=== PATIENT | female | born 1945 | race Caucasian/White ===

== ENCOUNTER 2016-05-29 06:06 | Day surgery (SDC) | payer MEDICARE, OTHER ==
[2016-05-22 12:42] LABS: HEMATOCRIT 36.6 % (36.0-48.0); HEMOGLOBIN 12.1 g/dL (12.0-16.0)
[2016-05-22 12:57] LABS: BUN (BLOOD UREA NITROGEN) 8 MG/DL (6-23); CALCIUM, SERUM 8.9 MG/DL (8.5-10.4); CHLORIDE, SERUM 99 MMOL/L (96-112); CO2 (CARBON DIOXIDE) 26 MMOL/L (24-34); CREATININE 1.24 MG/DL (0.55-1.02); GFR AFRICAN AMERICAN 51 ML/MIN (>=60); GFR NON AFRICAN AMERICAN 44 ML/MIN (>=60); GLUCOSE, SERUM 240 MG/DL (60-99); POTASSIUM, SERUM 4.4 MMOL/L (3.5-5.3); SODIUM, SERUM 136 MMOL/L (135-148)
--- NOTE | ~2016-05-29 | OP ---
Record Of Operation [facility] [address] [place]. [address] NAME: CATRINA COREA : 47 STATUS : [facility]#: [id number] AGE: 70 ADM/REG DATE : 05/29/16 MR#: [id number] REPORT SERV DATE: 05/30/16 DICTATED BY: MICHELLE RANDHAWA DATE: 05/30/16 REPORT STATUS : Draft TRANSCRIBED BY: MODBozena DATE: 05/30/16 DATE OF PROCEDURE: 05/29/2016 STATISTICAL GENETICIST: None. PRE-PROCEDURE DIAGNOSIS: Rest pain in the right lower extremity. 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 PROCEDURE PERFORMED: 1. Ultrasound-guided access to the left common femoral artery. 2. Aortogram. 3. Right lower extremity arteriogram. 4. Atherectomy of the right SFA using a TurboHawk device. 5. Angioplasty of the SFA using a 5-mm balloon. ANESTHESIA: MAC and local. SPECIMENS: Plaque. BLOOD LOSS: Minimal. COMPLICATIONS: None. INDICATIONS: Catrina Corea is a 70-year-old. She suffers from leg pain. She was investigated with ultrasound and found to have decreased LARRY. She was offered intervention. Risks, benefits, and alternatives were discussed. She understood and wished to proceed. OPERATIVE COURSE: The patient was brought to the operating room and placed in the supine position on the operating room table. The patient had MAC anesthetic without complications. Bilateral groins were prepped and draped in sterile fashion. A time-out was performed. Identified the correct patient, procedure, and site. We began by using ultrasound to identify the left common femoral artery. It was patent and free of significant disease. We anesthetized the skin and accessed the artery under ultrasound guidance. Once we had access, we passed a wire into the abdominal aorta and a picture was placed in the chart for review. The needle was then removed. We placed a 5-Comoran sheath over the wire. We passed the UF catheter and performed aortography demonstrating patency of the aortoiliac segment without flow-limiting stenosis in the aorta, common, internal, or external iliac arteries. We then passed a wire and catheter down to the right common femoral artery, performed a right lower extremity arteriogram demonstrating patency of the common femoral, profunda femoris artery. The SFA was diffusely diseased. Had a stenosis proximally and then in the mid segment had an eccentric calcified lesion that was about 90% stenosed and then distal stenosis as well. We got wire access across this lesion. We gave IV heparin and allowed adequate time for circulation. We then exchanged for a 6-Comoran sheath, which was brought up and over the aortic bifurcation of the right common femoral artery. We then brought up a Record Of Operation [address] [place]. [address] NAME: CATRINA COREA : 47 STATUS : [facility] PAT#: [id number] AGE: 70 ADM/REG DATE : 05/29/16 MR#: [id number] REPORT SERV DATE: 05/30/16 DICTATED BY: MICHELLE RANDHAWA DATE: 05/30/16 REPORT STATUS : Draft TRANSCRIBED BY: ASTRID DATE: 05/30/16 TurboHawk device and performed atherectomy of the eccentrically calcified lesion for a total of 6 passes. Repeat angiogram demonstrated an improved flow through the area. We then brought up a 5-mm balloon and performed angioplasty of the right SFA. A repeat arteriogram demonstrated brisk flow through the SFA into the distal runoff which was intact. She had three-vessel runoff into the foot. No residual stenosis was identified. Wires and catheters were withdrawn. The sheath was wired out and brought over to the left side of the patient. Left common femoral arteriogram demonstrated good location of the sheath and good size of the artery. StarClose was placed with good hemostasis. No complications. The patient tolerated the procedure well. She was awakened and transferred to recovery in stable condition. JAGRUTI/ASTRID Michelle Randhawa MD / [id number] CC: MD MADHAV Mar SARA E
[~2016-05-29 06:06] MED LIST: AMIT75 PO; COZ25 PO; CRESTOR5 MG PO; FERROUS SULF325 M1 PO; GLUCOPHAGE1000 MG PO; IMDUR30 PO; JANUVIA100 MG PO; LISINOPRIL40 MG PO; NAP500 PO; NEUR300 PO; NITROSTAT0.4 MG SL; RIOMET PO; TOPXL25 PO; VENTOLIN HFA INH; VITAMIN D PO; WELLSR150 PO; ZANTAC 150 PO; [UNRECOGNIZED DRUG - OTHER] PO
[2016-05-29] MEDS ORDERED: LOP25 PO (11:30)
[2016-05-29] MEDS ORDERED: PLAVIX PO (11:48)
[2016-05-29] MEDS ORDERED: ASAB PO (11:48)
== END 2016-05-29 12:15 | disposition home or self-care (01) ==
LOC: SDC 06:06 → SSU1 10:25
PROVIDERS: Student in an Organized Health Care Education/Training Program
PROC: 047K3ZZ Dilation of Right Femoral Artery, Percutaneous Approach (ICD-10-PCS; principal; 2016-05-29 07:45)
PROC: 04CK3ZZ Extirpation of Matter from Right Femoral Artery, Percutaneous Approach (ICD-10-PCS; 2016-05-29 07:45)
DX: I74.3 Embolism and thrombosis of arteries of the lower extremities (principal); I25.10 Atherosclerotic heart disease of native coronary artery without angina pectoris; I44.7 Left bundle-branch block, unspecified; N18.2 Chronic kidney disease, stage 2 (mild); I13.10 Hypertensive heart and chronic kidney disease without heart failure, with stage 1 through stage 4 chronic kidney disease, or unspecified chronic kidney disease; E11.22 Type 2 diabetes mellitus with diabetic chronic kidney disease; Z90.710 Acquired absence of both cervix and uterus; Z79.899 Other long term (current) drug therapy; F17.210 Nicotine dependence, cigarettes, uncomplicated; Z85.43 Personal history of malignant neoplasm of ovary; K21.9 Gastro-esophageal reflux disease without esophagitis; E11.40 Type 2 diabetes mellitus with diabetic neuropathy, unspecified; D64.9 Anemia, unspecified; Z79.84 Long term (current) use of oral hypoglycemic drugs; Z79.1 Long term (current) use of non-steroidal anti-inflammatories (NSAID)
CPT/HCPCS: 37225; 75625; 75710; 76937; 80048; 82962; 85014; 85018; 88304; 88311; A9270-GY; C1724; C1725; C1769; C1894; J2370; J2405; J3010; Q9967